=== PATIENT | male | born 1935 ===

== ENCOUNTER 2017-03-07 14:38 | Outpatient (CLI) | payer OTHER, BC ==
[~2017-03-07 14:38] MED LIST: ASPIRIN EC81 MG PO; LISINOPRIL10 MG PO; PERCOCET1 TA1 PO; VITAMIN D-31000 UNIT PO
--- NOTE | 2017-03-07 15:43 | DIAGNOSTIC IMAGING REPORT ---
PROCEDURE: XR WRIST MIN 3 VIEWS - LEFT INDICATION: L WRIST IMPACTED RADIAL HEAD FRACTURE TECHNIQUE: Four views COMPARISON: None. FINDINGS: There is a volar splint in place which obscures fine bony detail. There is no obvious fracture and there is no dislocation. Chondrocalcinosis of the ulnar carpal joint. Moderate degenerative changes of the first carpometacarpal joint. There is prominent soft tissue swelling over the dorsum of the hand. IMPRESSION: 1. Volar wrist splint in place without obvious fracture. Recommend repeat x-rays without splint 2. First carpometacarpal joint degenerative changes 3. Chondrocalcinosis 4. Soft tissue swelling over the dorsum of the hand 5. Results discussed with YENY Gonzalez
== END 2017-03-07 23:00 | disposition home or self-care (01) ==
LOC: XR SRH 14:38
DX: M18.12 Unilateral primary osteoarthritis of first carpometacarpal joint, left hand (principal); M11.232 Other chondrocalcinosis, left wrist; M79.9 Soft tissue disorder, unspecified; Z98.890 Other specified postprocedural states

== ENCOUNTER 2017-03-29 11:38 | Outpatient (CLI) | payer OTHER ==
--- NOTE | 2017-03-29 14:25 | DIAGNOSTIC IMAGING REPORT ---
PROCEDURE: MR UPPER EXTREMITY W/O CONT-LT INDICATION: LEFT SHOULDER PAIN; LIMITED ROM TECHNIQUE: PD and FAT-SAT PD, axial, and coronal-oblique images. PD and STIR sagittal-oblique images. COMPARISON: Left shoulder x-ray 05/01/2016. FINDINGS: Mild motion artifacts. Moderate AC joint degenerative changes. Caudal angulation of type 2 acromion resulting in mild impingement. There is a large complex full-thickness tear of the supraspinatus tendon which measures 2.5 cm transverse x 2 cm AP, resulting in superior subluxation of the humeral head. Small subdeltoid and subacromial bursal effusions. Tendinosis of the long head of the bicipital tendon. Labrum is grossly normal in the absence of intra-articular contrast. Normal glenohumeral ligaments. Mild degenerative changes of the glenohumeral joint. No suspicious osseous lesions. IMPRESSION: 1. Caudal angulation of type 2 acromion resulting in impingement 2. Large complex full-thickness tear of the supraspinatus tendon with superior subluxation of the humeral head 3. Small subacromial and subdeltoid effusions 4. Tendinosis of the long head of the bicipital tendon
== END 2017-03-29 23:00 ==
LOC: MRI SRH 11:38
DX: M75.42 Impingement syndrome of left shoulder (principal); S46.812A Strain of other muscles, fascia and tendons at shoulder and upper arm level, left arm, initial encounter; M25.412 Effusion, left shoulder; M75.22 Bicipital tendinitis, left shoulder